=== PATIENT | female | born 1980 | race Caucasian/White ===

== ENCOUNTER 2017-03-30 20:45 | Inpatient (IN) | payer OTHER ==
[~2017-03-30] VITALS: Ht 152.4 cm; Wt 94.3 kg
[~2017-03-30 20:45] MED LIST: IBUPROFEN800 MG PO; PRENATAL1 TA2 PO
[2017-03-30 23:06] LABS: ABSOLUTE BASOPHIL COUNT 0 /CUMM (0.0-0.2); ABSOLUTE EOSINOPHIL COUNT 0.1 /CUMM (0.0-0.7); ABSOLUTE GRANULOCYTE CT 8.5 /CUMM (1.4-6.5); ABSOLUTE LYMPH COUNT 3.1 /CUMM (1.2-3.4); ABSOLUTE MONOCYTE COUNT 0.7 /CUMM (0.10-0.60); BASOPHIL % 0.2 % (0.0-2.0); EOSINOPHIL % 1.2 % (0-5); GRANULOCYTE % 68.3 % (42.2-75.2); HEMATOCRIT 29.7 % (37-47); MEAN CORPUSCULAR HGB CONC 33.2 G/DL (33.0-37.0); MEAN CORPUSCULAR VOLUME 87.4 FL (81.0-99.0); MEAN PLATELET VOLUME 8.4 FL (7.4-10.4); PLATELET COUNT 222 /CUMM (130-400); WHITE BLOOD CELL COUNT 12.4 /CUMM (4.8-10.8)
--- NOTE | 2017-03-31 00:53 | History & Physical ---
General Information and HPI MD Statement: I have seen and personally examined MEDINA DOVE and documented this H&P. The patient is a 36 year old female at [40] weeks and [4] days gestation who presented with a chief complaint of ACTIVE LABOR[]. 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 EENTM: Reports: no symptoms. Cardiovascular: Reports: no symptoms. Respiratory: Reports: no symptoms. GI: Reports: no symptoms. Genitourinary: Reports: no symptoms. Musculoskeletal: Reports: no symptoms. Skin: Reports: no symptoms. Neurological/Psychological: Reports: no symptoms. Hematologic/Endocrine: Reports: no symptoms. Immunologic/Allergic: Reports: no symptoms. All Other Systems: Reviewed and Negative Exam & Diagnostic Data Obstetric Exam Wgt Gained During : 40 Pelvimetry: GYNECOID Dilation (cm): 6 Effacement (%): 10 Station: 0 Membranes: intact Fluid: unknown Fundal Height (cm): 41 Multiple Gestation? No Contractions: Q2-3 #1 - FHR Baseline: 140 Category: 1 Estimated Weight: 9 Presentation: CEPHALIC Patient for Induction? No Labs Blood Type & Rh: A NEG Antibody Screen: NEG Hct/Hgb & Platelets #1: Hct/Hgb & Platelets #2: Rubella: IMM VDRL #1: NR VDRL #2: NR HbsAg: NEG HIV #1: NEG HIV #2 NEG 1 Hr P Group B Strep: POS Initial Ultrasound: WNL Anatomy Ultrasound: WNL Ultrasound for EFW: 05/06 Genetic Testing: NEG Assessment/Plan Assessment/Plan: ACTIVE LABOR, GBS EXPECTANT MGMT, IV PCN As Ranked By This Provider Problem List: 1. Core Measures/Miscellaneous Venous Thromboembolism VTE Risk Factors: / VTE Contraindications: No Contraindications VTE Diagnosis: No Beta Ishmael Is Beta Ishmael a Home Med? No Antibiotics Is Patient on Antibiotics? Yes
--- NOTE | 2017-03-31 00:55 | Labor & Delivery Summary ---
Delivery Summary Vaginal Delivery: Vaginal: vertex Episiotomy/Lacerations: Episiotomy/Lacerations: EPIS Type: RML Repair: 3-0 LAYERED Anesthesia: LOCAL Placenta: Placenta: spontanteous, normal, 3 vessel Baby's Weight: 9-7 Apgars - 1 Min: 8 Apgars - 5 Min: 9 Additional Comments: MILD SD RELIEVED W/ SERA AND SPP
[2017-03-31 02:30] VITALS: BP 116/78
[2017-04-01 06:11] LABS: ABSOLUTE BASOPHIL COUNT 0 /CUMM (0.0-0.2); ABSOLUTE EOSINOPHIL COUNT 0.2 /CUMM (0.0-0.7); ABSOLUTE GRANULOCYTE CT 6.7 /CUMM (1.4-6.5); ABSOLUTE LYMPH COUNT 2.6 /CUMM (1.2-3.4); ABSOLUTE MONOCYTE COUNT 0.5 /CUMM (0.10-0.60); BASOPHIL % 0.4 % (0.0-2.0); EOSINOPHIL % 1.8 % (0-5); GRANULOCYTE % 66.9 % (42.2-75.2); HEMATOCRIT 27.3 % (37-47); MEAN PLATELET VOLUME 7.8 FL (7.4-10.4); PLATELET COUNT 165 /CUMM (130-400); RBC DISTRIBUTION WIDTH 14.9 % (11.5-14.5)
[2017-04-01] MEDS ORDERED: DOCUSATE SODIU100 M3 PO (07:24)
[2017-04-01] MEDS ORDERED: IBUPROFEN800 M1 PO (07:24)
--- NOTE | 2017-04-01 10:30 | PN- Post Delivery/GYN ---
Subjective Subjective: NO C/O Review of Systems: NEG Objective Last 24 Hrs of Vital Signs/I&O VSS Physical Exam: FF EXT NT Assessment/Plan Assessment/Plan S/P PPD1 DESIRES DISCHARGE HOME TODAY DISCHARGE HOME Problem List: 1.
== END 2017-04-01 13:30 | DRG 775 ==
LOC: CBCO 20:45 → GNO 22:34
PROVIDERS: ADMIT Obstetrics & Gynecology
PROC: 10E0XZZ Delivery of Products of Conception, External Approach (ICD-10-PCS; principal; 2017-03-31)
DX: O36.63X0 Maternal care for excessive fetal growth, third trimester, not applicable or unspecified (principal); O26.893 Other specified pregnancy related conditions, third trimester; Z3A.40 40 weeks gestation of pregnancy; Z37.0 Single live birth; O99.824 Streptococcus B carrier state complicating childbirth; O66.0 Obstructed labor due to shoulder dystocia; O77.0 Labor and delivery complicated by meconium in amniotic fluid
CPT/HCPCS: GNOP; GNOS; 81001; 86920; 86922; G0463; J0595; J1885; J2310; J2790; J7120